=== PATIENT | female | born 1990 | race Caucasian/White ===

== ENCOUNTER → 2017-12-31 | Outpatient (CLI) | payer OTHER | LOC: BMCIMAGING 11:58 | PROVIDERS: ATTEND Emergency Medicine | DX: S92.142A Displaced dome fracture of left talus, initial encounter for closed fracture (principal) ==

== ENCOUNTER → 2018-02-27 | Outpatient (CLI) | payer OTHER | LOC: BMCIMAGING 16:14 | PROVIDERS: ATTEND Podiatrist Foot & Ankle Surgery | DX: S92.102D Unspecified fracture of left talus, subsequent encounter for fracture with routine healing (principal) ==

== ENCOUNTER 2018-10-30 23:06 | Emergency (ER) | payer OTHER ==
[2018-10-30 23:13] VITALS: BP 118/78
[2018-10-30] MEDS ORDERED: IPRATROPIUM/ALBUTEROL 3 ML DEYVIAL IH ONE (23:37)
--- NOTE | 2018-10-30 23:46 | EDPHY ---
H & P Stated Complaint: COUGH X 1 WK Time Seen by Provider: 10/30/18 23:21 HPI/ROS: HPI The patient presents with cough which has been present for the last 1 week which is intermittent though getting progressively worse. It is a dry cough that occurs in fits and is worse at night. Sometimes she gags after coughing. She has not had a fever with this. She reports initial sore throat which is now resolved and mild rhinorrhea. She has not had a fever. She denies any sick contacts though was traveling [place] [facility] [place], including airplane travel. At about 4:00 p.m. Today she went to urgent care and was clinically diagnosed with pertussis. She has an allergy to pertussis vaccines according to her chart. She received codeine tabs 15 mg and took 1 tab at 8:30 p.m. Tonight but it did not help with the cough. She was prescribed a course of azithromycin but was hesitant to take it because she did not want to disrupt her GI rashel.. REVIEW OF SYSTEMS 10 systems were reviewed and negative with the exception of the elements mentioned in the history of present illness. 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 Soc Hx: Nonsmoker FHx: Father with asthma PHYSICAL General Appearance: Alert, no distress, occasionally with dry cough during our exam Eyes: Pupils equal and round no pallor or injection ENT, Mouth: Mucous membranes moist Respiratory: There are no retractions, lungs are clear to auscultation Cardiovascular: Regular rate and rhythm Gastrointestinal: Abdomen is soft and non-tender, no masses, bowel sounds normal Neurological: A&O, moves all extremities Skin: Warm and dry, no rashes Musculoskeletal: Neck is supple non tender Extremities: symmetrical, full range of motion Psychiatric: Patient is oriented X 3, there is no agitation Source: Patient Exam Limitations: No limitations - Personal History LMP (Females 10-55): 22-28 Days Ago Current Tetanus Diphtheria and Acellular Pertussis (TDAP): Unsure - Medical/Surgical History Hx Asthma: No Hx Chronic Respiratory Disease: No Hx Diabetes: No Hx Cardiac Disease: No Hx Renal Disease: No Hx Cirrhosis: No Hx Alcoholism: No Hx HIV/AIDS: No Hx Splenectomy or Spleen Trauma: No Other PMH: Aj's thyroiditis - Social History Smoking Status: Never smoked Constitutional: Initial Vital Signs Temperature (C) 36.8 C 10/30/18 23:09 Heart Rate 90 10/30/18 23:09 Respiratory Rate 16 10/30/18 23:09 Blood Pressure 118/78 10/30/18 23:09 O2 Sat (%) 95 10/30/18 23:09 O2 Delivery Mode Room Air Allergies/Adverse Reactions: benzonatate [From Tessalon Perles] Allergy (Verified 10/30/18 23:13) cephalexin [From Keflex] Allergy (Verified 10/30/18 23:13) Pertussis Vaccines Allergy (Verified 10/30/18 23:13) Sulfa (Sulfonamide Antibiotics) Allergy (Verified 10/30/18 23:13) Home Medications: Medication Instructions Recorded Naturthroid 10/30/18 Medical Decision Making - Diagnostics Imaging Results: Imaging Impressions Chest X-Ray 10/30/18 23:36 Impression: Normal chest x-ray. Imaging: Discussed imaging studies w/ call worker Radiologist, I viewed and interpreted images myself Differential Diagnosis: This is a 27-year-old female with reported history of Aj's thyroiditis who presents from home with 1 week of cough, diagnosed earlier today with pertussis clinically. She tried taking her codeine cough tab at home, however this did not help her symptoms and she came into the emergency department. She has not taken antibiotics yet. On arrival here, her vital signs are normal, she is afebrile, not tachypneic or hypoxic. She does have occasional dry cough. Differential diagnosis considered includes pneumonia, bronchitis, pertussis is a consideration given that she is non vaccinated. I have recommended chest x-ray as well as trial of DuoNeb to see if this helps her symptoms. She had mild relief of her symptoms with a DuoNeb. Thus, I will give her a albuterol inhaler to go home with. Chest x-ray showed no pneumonia. I feel that she likely has a URI type illness, though pertussis is a consideration. I have advised her that she can take the azithromycin as she would like and have encouraged her to continue supportive measures. She will be discharged home. - Data Points Medications Given: Discontinued Medications Albuterol Sulfate (Proventil Inh Prepack) 1 mdi TAKEHOME EDNOW ONE Stop: 10/31/18 00:21 Last Admin: 10/31/18 00:29 Dose: 1 mdi Albuterol/Ipratropium (Duoneb) 3 ml IH EDNOW ONE Stop: 10/30/18 23:38 Last Admin: 10/30/18 23:39 Dose: 3 ml Departure - Departure Disposition: Home, Routine, Self-Care Clinical Impression: Cough URI (upper respiratory infection) Qualifiers: URI type: unspecified URI Qualified Code(s): J06.9 - Acute upper respiratory infection, unspecified Condition: Good Instructions: Acute Cough (ED) Additional Instructions: I recommend that you use 1-2 puffs of the albuterol inhaler every 4 hr as needed for cough. Please follow-up with your primary care provider in the next few days. Referrals: Sharyn Orozco FNP [Primary Care Provider] - As per Instructions
[2018-10-31] MEDS ORDERED: ALBUTEROL INH PREPACK MDI TAKEHOME ONE (00:20)
== END 2018-10-31 00:34 | disposition home or self-care (01) ==
DX: A37.90 Whooping cough, unspecified species without pneumonia (principal); J06.9 Acute upper respiratory infection, unspecified; E06.3 Autoimmune thyroiditis